=== PATIENT | female | born 1990 | race Caucasian/White ===

== ENCOUNTER 2018-09-03 07:21 | Inpatient (IN) | payer OTHER ==
[~2018-09-03] VITALS: Ht 170.2 cm; Wt 84.7 kg
[2018-09-03 07:30] VITALS: BP 117/73
[2018-09-03 08:07] LABS: MICROSCOPIC NOT IND
[2018-09-03 08:18] LABS: AMPHETAMINE SCREEN, URINE Negative (Negative); BARBITURATE SCREEN, URINE Negative (Negative); BENZODIAZEPINE SCREEN, URINE Negative (Negative); CANNABINOID SCREEN, URINE Negative (Negative); COCAINE SCREEN, URINE Negative (Negative); METHADONE SCREEN, URINE Negative (Negative); OPIATE SCREEN, URINE Negative (Negative)
[2018-09-03] MEDS ORDERED: ACETAMINOPHEN 325 MG TABLET ONE (14:08)
[2018-09-03] MEDS ORDERED: ACETAMINOPHEN 325 MG TABLET PO PRN (14:30)
[2018-09-03] MEDS ORDERED: MAGNESIUM SULFATE PMX 4GM/100M 100 ML IVPB ONE (17:30)
[2018-09-03] MEDS ORDERED: CALCIUM GLUCONATE 4.6 MEQ/10 ML IV PRN (17:30)
[2018-09-03] MEDS ORDERED: MAGNESIUM SULF. PMX 20GM/500ML 500 ML IV ONE (17:32)
[2018-09-03] MEDS ORDERED: BETAMETHASONE 6 MG/ML, 5ML IM ONE (17:32)
[2018-09-03] MEDS: BETAMETHASONE 6 MG/ML, 5ML IM SCH (17:43)
[2018-09-03] MEDS: LACTATED RINGERS 1,000 ML IV PRN (17:53)
[2018-09-03 18:06] LABS: BASOPHILS # (AUTO) 0.14 x10^3/uL (0-0.1); BASOPHILS % (AUTO) 1 % (0-1); EOSINOPHILS # (AUTO) 0.09 x10^3/uL (0-0.4); EOSINOPHILS % (AUTO) 1 % (1-7); LYMPHOCYTES # (AUTO) 2.09 x10^3/uL (1-3.4); LYMPHOCYTES % (AUTO) 20 % (22-44); MD NO; MEAN CORPUSCULAR HEMOGLOBIN 31.7 pg (27.0-34.8); MEAN CORPUSCULAR HGB CONC 33.5 g/dL (32.4-35.8); MEAN CORPUSCULAR VOLUME 94.8 fL (80-100); MEAN PLATELET VOLUME 9.2 fL (7.4-10.4); MONOCYTES # (AUTO) 0.62 x10^3/uL (0.2-0.8); MONOCYTES % (AUTO) 6 % (2-9); NEUTROPHILS # (AUTO) 7.37 x10^3/uL (1.8-6.8); NEUTROPHILS % (AUTO) 72 % (42-75); PLATELET COUNT 196 x10^3/uL (130-400); RED BLOOD COUNT 4.03 x10^6/uL (3.82-5.3); RED CELL DISTRIBUTION WIDTH 12.2 % (9.6-15.2)
[2018-09-03 18:13] LABS: ALANINE AMINOTRANSFERASE 10 U/L (12-78); ALBUMIN 2.7 g/dL (3.4-5.0); ANION GAP 8 mmol/L (5-15); CALCIUM 8.7 mg/dL (8.5-10.1); CHLORIDE 112 mmol/L (98-107); CREATININE 0.53 mg/dL (0.55-1.02)
[2018-09-03 18:16] LABS: ALKALINE PHOSPHATASE 65 U/L (45-117); BILIRUBIN,TOTAL 0.3 mg/dL (0.2-1.0); TOTAL PROTEIN 6.6 g/dL (6.4-8.2)
[2018-09-03] MEDS: MAGNESIUM SULF. PMX 20GM/500ML 500 ML IV SCH (18:19)
[2018-09-03] MEDS ORDERED: MAGNESIUM SULFATE PMX 2GM/50ML 50 ML IVPB ONE (18:30)
[2018-09-03] MEDS ORDERED: INDOMETHACIN 25 MG CAPSULE ONE (19:22)
[2018-09-03] MEDS ORDERED: INDOMETHACIN 50 MG CAPSULE PO SCH (19:30)
[2018-09-03 20:13] VITALS: BP 114/72
[2018-09-03] MEDS ORDERED: INDOMETHACIN 50 MG CAPSULE PO ONE (20:30)
[2018-09-03] MEDS ORDERED: PENICILLIN GK 5,000,000 UNITS in DEXTROSE 5% 100 ML IVPB ONE (20:30)
[2018-09-03] MEDS ORDERED: ONDANSETRON 2MG/ML, 2ML IVPush PRN (21:30)
[2018-09-03] MEDS ORDERED: CALCIUM CARBONATE 500 MG TAB.CHEW PO PRN (21:30)
[2018-09-04] MEDS ORDERED: MAGNESIUM SULF. PMX 20GM/500ML 500 ML IV ONE ×3 (00:43→20:39)
[2018-09-04] MEDS: MAGNESIUM SULF. PMX 20GM/500ML 500 ML IV SCH ×3 (00:47→20:41)
[2018-09-04] MEDS: PENICILLIN GK 2,500,000 UNITS in DEXTROSE 5% 100 ML IVPB SCH ×6 (00:48→20:41)
[2018-09-04] MEDS: LACTATED RINGERS 1,000 ML IV PRN ×2 (01:26→13:52)
[2018-09-04] MEDS ORDERED: PREN1TAB60 PO (02:34)
[2018-09-04] MEDS: INDOMETHACIN 50 MG CAPSULE PO SCH ×3 (03:25→19:49)
[2018-09-04 04:00] LABS: HEMOGLOBIN A1C 4.8 % (4.2-6.3)
[2018-09-04] MEDS ORDERED: INSULIN LISPRO 100 UNITS/ML, PEN SQ-INSULIN ONE ×2 (07:30→08:00)
[2018-09-04] MEDS ORDERED: INSULIN NPH HUMAN 100 UNIT/ML, 3ML VIAL SQ-INSULIN ONE ×2 (07:30)
[2018-09-04] MEDS ORDERED: PRENATAL VIT/IRON/FA 1 EACH TABLET ONE (08:59)
[2018-09-04] MEDS ORDERED: DOCUSATE 100 MG CAPSULE ONE ×2 (08:59→20:45)
[2018-09-04] MEDS: DOCUSATE 100 MG CAPSULE PO SCH ×2 (09:06→21:02)
[2018-09-04] MEDS: PRENATAL VIT/IRON/FA 1 EACH TABLET PO SCH (09:06)
[2018-09-04] MEDS: BETAMETHASONE 6 MG/ML, 5ML IM SCH (17:51)
[2018-09-04 19:45] VITALS: BP 109/63
[2018-09-05] MEDS: PENICILLIN GK 2,500,000 UNITS in DEXTROSE 5% 100 ML IVPB SCH ×6 (00:42→20:36)
[2018-09-05] MEDS: LACTATED RINGERS 1,000 ML IV PRN ×2 (02:45→14:43)
[2018-09-05] MEDS: INDOMETHACIN 50 MG CAPSULE PO SCH ×3 (03:50→19:48)
[2018-09-05] MEDS ORDERED: MAGNESIUM SULF. PMX 20GM/500ML 500 ML IV ONE ×2 (06:23→16:04)
[2018-09-05] MEDS: MAGNESIUM SULF. PMX 20GM/500ML 500 ML IV SCH ×2 (06:25→16:06)
[2018-09-05] MEDS ORDERED: DOCUSATE 100 MG CAPSULE ONE ×2 (08:18→19:22)
[2018-09-05] MEDS ORDERED: PRENATAL VIT/IRON/FA 1 EACH TABLET ONE (08:18)
[2018-09-05] MEDS: PRENATAL VIT/IRON/FA 1 EACH TABLET PO SCH (08:28)
[2018-09-05] MEDS: DOCUSATE 100 MG CAPSULE PO SCH ×2 (08:28→19:48)
[2018-09-05 20:29] LABS: MICROSCOPIC INDICATED
[2018-09-05] MEDS ORDERED: INSULIN NPH HUMAN 100 UNIT/ML, 3ML VIAL SQ-INSULIN ONE (21:00)
[2018-09-06] MEDS: PENICILLIN GK 2,500,000 UNITS in DEXTROSE 5% 100 ML IVPB SCH ×3 (00:26→08:34)
[2018-09-06] MEDS ORDERED: MAGNESIUM SULF. PMX 20GM/500ML 500 ML IV ONE (02:04)
[2018-09-06] MEDS: MAGNESIUM SULF. PMX 20GM/500ML 500 ML IV SCH (02:56)
[2018-09-06] MEDS: INDOMETHACIN 50 MG CAPSULE PO SCH ×3 (03:12→19:10)
[2018-09-06] MEDS: LACTATED RINGERS 1,000 ML IV PRN (03:56)
[2018-09-06] MEDS ORDERED: INSULIN NPH HUMAN 100 UNIT/ML, 3ML VIAL SQ-INSULIN ONE (07:30)
[2018-09-06] MEDS ORDERED: INSULIN LISPRO 100 UNITS/ML, PEN SQ-INSULIN SCH (07:30)
[2018-09-06] MEDS ORDERED: PRENATAL VIT/IRON/FA 1 EACH TABLET ONE (09:29)
[2018-09-06] MEDS ORDERED: DOCUSATE 100 MG CAPSULE ONE ×2 (09:30→21:00)
[2018-09-06] MEDS ORDERED: NITROFURANTOIN (MACROBID) 100 MG CAPSULE ONE ×2 (09:30→20:45)
[2018-09-06] MEDS: PRENATAL VIT/IRON/FA 1 EACH TABLET PO SCH (09:38)
[2018-09-06] MEDS: DOCUSATE 100 MG CAPSULE PO SCH ×2 (09:38→21:14)
[2018-09-06] MEDS: NITROFURANTOIN (MACROBID) 100 MG CAPSULE PO SCH ×2 (09:38→21:14)
[2018-09-06] MEDS ORDERED: INSULIN LISPRO 100 UNITS/ML, PEN SQ-INSULIN ONE ×2 (14:00→21:00)
[2018-09-06] MEDS ORDERED: PENICILLIN GK 2,500,000 UNITS in DEXTROSE 5% 100 ML IVPB SCH (15:00)
[2018-09-06] MEDS ORDERED: INSULIN NPH HUMAN 100 UNIT/ML, 3ML VIAL SQ-INSULIN SCH (21:00)
[2018-09-07] MEDS ORDERED: PRENATAL VIT/IRON/FA 1 EACH TABLET ONE (08:21)
[2018-09-07] MEDS ORDERED: DOCUSATE 100 MG CAPSULE ONE (08:21)
[2018-09-07] MEDS ORDERED: NITROFURANTOIN (MACROBID) 100 MG CAPSULE ONE (08:22)
[2018-09-07] MEDS: DOCUSATE 100 MG CAPSULE PO SCH (08:23)
[2018-09-07] MEDS: PRENATAL VIT/IRON/FA 1 EACH TABLET PO SCH (08:23)
[2018-09-07] MEDS: NITROFURANTOIN (MACROBID) 100 MG CAPSULE PO SCH (08:23)
[2018-09-07] MEDS ORDERED: SODIUM CHLORIDE FLUSH 3ML SYRINGE IVF SCH (09:00)
== END 2018-09-07 12:30 | disposition home or self-care (01) | DRG 831 ==
LOC: LDOP 07:21 → LDIP 10:54 → LDOP 10:54 → LDIP 10:54 → OBSVTOIN 17:25
PROVIDERS: ADMIT Obstetrics & Gynecology; ATTEND Obstetrics & Gynecology
DX: O24.415 Gestational diabetes mellitus in pregnancy, controlled by oral hypoglycemic drugs (principal); O60.02 Preterm labor without delivery, second trimester; O26.872 Cervical shortening, second trimester; O46.92 Antepartum hemorrhage, unspecified, second trimester; O40.2XX0 Polyhydramnios, second trimester, not applicable or unspecified; O99.282 Endocrine, nutritional and metabolic diseases complicating pregnancy, second trimester; E06.3 Autoimmune thyroiditis; Z3A.25 25 weeks gestation of pregnancy; Z88.2 Allergy status to sulfonamides
CPT/HCPCS: 36415; 76815; 80053; 80307; 81001; 81003; 82962; 83036; 83735; 84443; 85025; 86850; 86900; 87081; 87086; G0378; J0702; J1815; J2540; J3475; J7120

== ENCOUNTER 2018-09-15 16:21 | Inpatient (IN) | payer OTHER ==
[~2018-09-15] VITALS: Ht 170.2 cm; Wt 87.0 kg
[~2018-09-15 16:21] MED LIST: PREN1TAB60 PO
[2018-09-15 18:10] VITALS: BP 123/78
[2018-09-15 18:12] LABS: MICROSCOPIC INDICATED
[2018-09-15] MEDS ORDERED: INDOMETHACIN 50 MG CAPSULE PO ONE (19:22)
[2018-09-15] MEDS ORDERED: PENICILLIN GK 5,000,000 UNITS in DEXTROSE 5% 100 ML IVPB ONE (19:30)
[2018-09-15] MEDS ORDERED: MAGNESIUM SULFATE PMX 4GM/100M 100 ML IVPB ONE (19:30)
[2018-09-15] MEDS ORDERED: MAGNESIUM SULF. PMX 20GM/500ML 500 ML IV ONE (19:38)
[2018-09-15 19:46] LABS: BASOPHILS # (AUTO) 0.03 x10^3/uL (0-0.1); BASOPHILS % (AUTO) 0 % (0-1); EOSINOPHILS # (AUTO) 0.11 x10^3/uL (0-0.4); EOSINOPHILS % (AUTO) 1 % (1-7); LYMPHOCYTES # (AUTO) 2.07 x10^3/uL (1-3.4); LYMPHOCYTES % (AUTO) 17 % (22-44); MD NO; MEAN CORPUSCULAR HEMOGLOBIN 31.6 pg (27.0-34.8); MEAN CORPUSCULAR HGB CONC 33.6 g/dL (32.4-35.8); MEAN CORPUSCULAR VOLUME 94.2 fL (80-100); MEAN PLATELET VOLUME 8.8 fL (7.4-10.4); MONOCYTES # (AUTO) 0.58 x10^3/uL (0.2-0.8); MONOCYTES % (AUTO) 5 % (2-9); NEUTROPHILS # (AUTO) 9.77 x10^3/uL (1.8-6.8); NEUTROPHILS % (AUTO) 78 % (42-75); PLATELET COUNT 225 x10^3/uL (130-400); RED BLOOD COUNT 3.94 x10^6/uL (3.82-5.3); RED CELL DISTRIBUTION WIDTH 12.3 % (9.6-15.2)
[2018-09-16] MEDS: PENICILLIN GK 2,500,000 UNITS in DEXTROSE 5% 100 ML IVPB SCH ×6 (00:22→21:20)
[2018-09-16] MEDS ORDERED: MAGNESIUM SULF. PMX 20GM/500ML 500 ML IV ONE ×3 (03:00→23:20)
[2018-09-16] MEDS ORDERED: INDOMETHACIN 25 MG CAPSULE ONE ×4 (03:00→20:48)
[2018-09-16] MEDS: INDOMETHACIN 25 MG CAPSULE PO SCH ×4 (03:03→21:04)
[2018-09-16] MEDS: MAGNESIUM SULF. PMX 20GM/500ML 500 ML IV SCH ×3 (03:04→23:22)
[2018-09-16] MEDS: LACTATED RINGERS 1,000 ML IV PRN ×2 (03:05→20:16)
[2018-09-16 07:40] VITALS: BP 91/60
[2018-09-17] MEDS: PENICILLIN GK 2,500,000 UNITS in DEXTROSE 5% 100 ML IVPB SCH ×6 (01:05→21:26)
[2018-09-17] MEDS ORDERED: INDOMETHACIN 25 MG CAPSULE ONE ×4 (02:57→19:19)
[2018-09-17] MEDS: INDOMETHACIN 25 MG CAPSULE PO SCH ×3 (02:58→15:04)
[2018-09-17] MEDS ORDERED: MAGNESIUM HYDROXIDE 8%, 30ML UDC PO PRN (08:00)
[2018-09-17] MEDS ORDERED: DOCUSATE 100 MG CAPSULE ONE ×2 (08:58→19:19)
[2018-09-17] MEDS ORDERED: PRENATAL VIT/IRON/FA 1 EACH TABLET ONE (08:58)
[2018-09-17] MEDS ORDERED: MAGNESIUM SULF. PMX 20GM/500ML 500 ML IV ONE ×2 (09:01→18:35)
[2018-09-17] MEDS: PRENATAL VIT/IRON/FA 1 EACH TABLET PO SCH (09:03)
[2018-09-17] MEDS: DOCUSATE 100 MG CAPSULE PO SCH ×2 (09:03→21:04)
[2018-09-17] MEDS: LACTATED RINGERS 1,000 ML IV PRN ×2 (09:04→21:26)
[2018-09-17] MEDS: MAGNESIUM SULF. PMX 20GM/500ML 500 ML IV SCH ×3 (09:08→21:12)
[2018-09-17] MEDS ORDERED: INDOMETHACIN 25 MG CAPSULE PO SCH (19:30)
[2018-09-17 19:42] VITALS: BP 94/58
[2018-09-17] MEDS ORDERED: MAGNESIUM HYDROXIDE 8%, 30ML UDC ONE (20:54)
[2018-09-18] MEDS: PENICILLIN GK 2,500,000 UNITS in DEXTROSE 5% 100 ML IVPB SCH ×3 (01:29→09:33)
[2018-09-18 05:12] VITALS: BP 102/60
[2018-09-18] MEDS ORDERED: DOCUSATE 100 MG CAPSULE ONE ×2 (09:30→20:50)
[2018-09-18] MEDS ORDERED: PRENATAL VIT/IRON/FA 1 EACH TABLET ONE (09:30)
[2018-09-18] MEDS: DOCUSATE 100 MG CAPSULE PO SCH ×2 (09:33→20:58)
[2018-09-18] MEDS: PRENATAL VIT/IRON/FA 1 EACH TABLET PO SCH (09:33)
[2018-09-18] MEDS ORDERED: BISACODYL 10 MG SUPP PR PRN (12:00)
[2018-09-18 19:47] VITALS: BP 100/66
[2018-09-19] MEDS ORDERED: INDOMETHACIN 25 MG CAPSULE ONE (02:32)
[2018-09-19] MEDS ORDERED: INDOMETHACIN 50 MG CAPSULE PO ONE (03:00)
[2018-09-19] MEDS ORDERED: FENTANYL PF 100 MCG/2ML ONE (03:10)
[2018-09-19] MEDS ORDERED: MAGNESIUM SULF. PMX 20GM/500ML 500 ML IV ONE (03:14)
[2018-09-19] MEDS ORDERED: OXYTOCIN 30U/ 0.9% NaCL 500ML 500 ML ONE ×2 (03:19→04:19)
[2018-09-19] MEDS ORDERED: OXYTOCIN 30U/ 0.9% NaCL 500ML 500 ML IV ONE (03:47)
[2018-09-19] MEDS ORDERED: OXYcodone/APAP 5/325MG TABLET ONE (03:56)
[2018-09-19] MEDS: OXYTOCIN 30U/ 0.9% NaCL 500ML 500 ML IV SCH ×2 (04:28→14:23)
[2018-09-19] MEDS ORDERED: IBUPROFEN 600 MG TABLET PO PRN (04:30)
[2018-09-19] MEDS ORDERED: OXYcodone/APAP 5/325MG TABLET PO PRN ×2 (04:30)
[2018-09-19] MEDS ORDERED: MISOPROSTOL 200 MCG TABLET PR PRN (04:30)
[2018-09-19] MEDS ORDERED: DIPH,PERTUSS(ACELL),TET VAC/PF NC IM-VACC PRN (04:30)
[2018-09-19] MEDS ORDERED: PENICILLIN GK 5,000,000 UNITS in DEXTROSE 5% 100 ML IVPB ONE (04:30)
[2018-09-19] MEDS ORDERED: DOCUSATE 100 MG CAPSULE PO PRN (04:30)
[2018-09-19] MEDS ORDERED: MAGNESIUM SULF. PMX 20GM/500ML 500 ML IV PRN (04:30)
[2018-09-19 06:10] VITALS: BP 98/63
[2018-09-19 07:15] VITALS: BP 108/72
[2018-09-19] MEDS: DOCUSATE 100 MG CAPSULE PO SCH ×2 (09:00→20:00)
[2018-09-19] MEDS: PRENATAL VIT/IRON/FA 1 EACH TABLET PO SCH (09:00)
[2018-09-19] MEDS ORDERED: INDOMETHACIN 25 MG CAPSULE PO SCH (09:00)
[2018-09-19 12:00] VITALS: BP 105/70
[2018-09-19 12:10] LABS: BASOPHILS % (AUTO) 1 % (0-1); EOSINOPHILS # (AUTO) 0.07 x10^3/uL (0-0.4); EOSINOPHILS % (AUTO) 1 % (1-7); LYMPHOCYTES # (AUTO) 1.66 x10^3/uL (1-3.4); LYMPHOCYTES % (AUTO) 14 % (22-44); MD NO; MEAN CORPUSCULAR HEMOGLOBIN 31.7 pg (27.0-34.8); MEAN CORPUSCULAR HGB CONC 33.3 g/dL (32.4-35.8); MEAN CORPUSCULAR VOLUME 95.1 fL (80-100); MEAN PLATELET VOLUME 8.7 fL (7.4-10.4); MONOCYTES # (AUTO) 0.65 x10^3/uL (0.2-0.8); MONOCYTES % (AUTO) 5 % (2-9); NEUTROPHILS # (AUTO) 9.75 x10^3/uL (1.8-6.8); NEUTROPHILS % (AUTO) 80 % (42-75); PLATELET COUNT 229 x10^3/uL (130-400); RED BLOOD COUNT 3.75 x10^6/uL (3.82-5.3); RED CELL DISTRIBUTION WIDTH 12.2 % (9.6-15.2)
[2018-09-19 15:55] VITALS: BP 94/62
[2018-09-19 19:20] VITALS: BP 99/68
[2018-09-20 00:10] VITALS: BP 96/65
[2018-09-20] MEDS: OXYTOCIN 30U/ 0.9% NaCL 500ML 500 ML IV SCH ×3 (00:23→20:23)
[2018-09-20] MEDS ORDERED: MAGNESIUM SULF. PMX 20GM/500ML 500 ML IV PRN (04:30)
[2018-09-20 09:02] VITALS: BP 101/73
[2018-09-20] MEDS: PRENATAL VIT/IRON/FA 1 EACH TABLET PO SCH (09:45)
[2018-09-20] MEDS: DOCUSATE 100 MG CAPSULE PO SCH ×2 (09:45→19:46)
[2018-09-20 19:40] VITALS: BP 99/66
[2018-09-21] MEDS: OXYTOCIN 30U/ 0.9% NaCL 500ML 500 ML IV SCH (06:23)
[2018-09-21] MEDS ORDERED: IBUP-1223 PO (08:54)
[2018-09-21 08:55] VITALS: BP 107/76
[2018-09-21] MEDS: PRENATAL VIT/IRON/FA 1 EACH TABLET PO SCH (09:00)
[2018-09-21] MEDS: DOCUSATE 100 MG CAPSULE PO SCH (09:00)
== END 2018-09-21 11:35 | disposition home or self-care (01) | DRG 806 ==
LOC: LDOP 16:21 → LDIP 19:15 → 2NW 09-19 05:40
PROVIDERS: ADMIT Obstetrics & Gynecology Maternal & Fetal Medicine; ATTEND Obstetrics & Gynecology Maternal & Fetal Medicine
PROC: 10E0XZZ Delivery of Products of Conception, External Approach (ICD-10-PCS; principal; 2018-09-19)
PROC: 0KQM0ZZ Repair Perineum Muscle, Open Approach (ICD-10-PCS; 2018-09-19)
DX: O60.12X0 Preterm labor second trimester with preterm delivery second trimester, not applicable or unspecified (principal); O26.872 Cervical shortening, second trimester; Z37.0 Single live birth; O99.824 Streptococcus B carrier state complicating childbirth; Z3A.27 27 weeks gestation of pregnancy; O70.1 Second degree perineal laceration during delivery; O69.81X0 Labor and delivery complicated by cord around neck, without compression, not applicable or unspecified; O99.284 Endocrine, nutritional and metabolic diseases complicating childbirth; O40.2XX0 Polyhydramnios, second trimester, not applicable or unspecified; E06.3 Autoimmune thyroiditis; Z80.3 Family history of malignant neoplasm of breast; Z88.2 Allergy status to sulfonamides
CPT/HCPCS: 36415; 76815; 81001; 82803; 83735; 85025; 86850; 86900; 87086; 88305; G0378; J2540; J2590; J3475; J7120

== ENCOUNTER 2020-09-13 16:38 | Emergency (ER) | payer OTHER ==
[~2020-09-13] VITALS: Ht 170.2 cm; Wt 70.7 kg
[~2020-09-13 16:38] MED LIST changes: +IBUP-1223 PO
--- NOTE | 2020-09-13 17:06 | NUR ---
INTINAL CONTACT: PT REPORTS RIGHT SIDED FLANK PAIN WITH URINARY FREQUENCY AND DYSURIA. PT WITH STEADY GAIT TO ROOM. ATTACHED TO MONITORS. VSS. NADN. POSTIONED TO COMFORT. AWAITING ORDERS.
--- NOTE | 2020-09-13 17:43 | NUR ---
US AT BEDSIDE
[2020-09-13 17:47] LABS: MICROSCOPIC AUTO
[2020-09-13 17:52] LABS: BASOPHILS % (AUTO) 1 % (0-1); EOSINOPHILS % (AUTO) 5 % (1-7); LYMPHOCYTES % (AUTO) 38 % (22-44); MEAN CORPUSCULAR HEMOGLOBIN 31.3 pg (27.0-34.8); MEAN CORPUSCULAR HGB CONC 33.8 g/dL (32.4-35.8); MEAN PLATELET VOLUME 8.7 fL (7.4-10.4); MONOCYTES % (AUTO) 6 % (2-9); NEUTROPHILS % (AUTO) 49 % (42-75); PLATELET COUNT 185 x10^3/uL (130-400); RED BLOOD COUNT 4.31 x10^6/uL (3.82-5.3); RED CELL DISTRIBUTION WIDTH 12.5 % (9.6-15.2)
[2020-09-13 18:00] LABS: ALBUMIN 3.7 g/dL (3.4-5.0); ANION GAP 7 mmol/L (5-15); CALCIUM 8.5 mg/dL (8.5-10.1); CHLORIDE 111 mmol/L (98-107)
[2020-09-13 18:06] LABS: ALANINE AMINOTRANSFERASE 16 U/L (12-78); ALKALINE PHOSPHATASE 57 U/L (45-117); BILIRUBIN,TOTAL 0.4 mg/dL (0.2-1.0); CREATININE 0.61 mg/dL (0.55-1.02); TOTAL PROTEIN 7.3 g/dL (6.4-8.2)
[2020-09-13 18:22] VITALS: BP 106/74
--- NOTE | 2020-09-13 18:22 | NUR ---
DR. MANNING TO BEDSIDE FOR EVALUATION
--- NOTE | 2020-09-13 18:48 | NUR ---
Patient given discharge instructions and they have confirmed that they understand the instructions. Patient ambulatory with steady gait. NAD, all questions answered appropriately, denies additional needs at this time. No personal belongings left in room after discharge.
== END 2020-09-13 18:49 | disposition home or self-care (01) ==
LOC: ED 17:08
DX: N30.00 Acute cystitis without hematuria (principal)
CPT/HCPCS: 36415; 76830; 80053; 81001; 84703; 85025; 87086; 87147; 99284